=== PATIENT | female | born 1995 | race African-American/Black ===

== ENCOUNTER 2019-07-11 13:40 | Emergency (ER) | payer MEDICAID ==
[~2019-07-11] VITALS: Ht 177.8 cm; Wt 76.2 kg
[2019-07-11 14:18] VITALS: BP 131/96
[2019-07-11 15:31] LABS: BUN/Creatinine Ratio 11.1; Calcium 9.3 mg/dL (8.5-10.1); Potassium 3.5 mmol/L (3.5-5.1)
[2019-07-11 15:34] LABS: Bilirubin, Total 0.3 mg/dL (0.2-1.0); Total Protein 7.7 g/dL (6.4-8.2)
[2019-07-11 15:42] LABS: Basophils # (auto) 0 uL; Basophils % (auto) 0.6 % (0.0-2.0); Eosinophils # (auto) 0.1 uL; Hematocrit 38.1 % (36.0-46.0); Hemoglobin 12.8 g/dL (12.2-16.2); Lymphocytes # (auto) 1.7 uL; Lymphocytes % (auto) 23.2 % (10.0-50.0); Mean Corpuscular Hemoglobin 28.1 pg (28.0-32.0); Mean Corpuscular Hgb Conc. 33.5 g/dL (32.0-36.0); Mean Corpuscular Volume 83.8 fL (80.0-100.0); Monocytes # (auto) 0.3 uL; Monocytes % (auto) 3.7 % (0.0-12.0); Neutrophils % (auto) 70.5 % (37.0-80.0); Nucleated Red Blood Cells % 0.1 %; Platelet Count (auto) 150 10^3/uL (140-450); Red Blood Cells 4.55 10^6/uL (4.0-5.20); Red Cell Distribution Width 16.3 % (11.8-14.3); White Blood Cell 7.1 10^3/uL (4.4-10.8)
[2019-07-11 16:01] LABS: Urine Bacteria FEW /hpf (None Seen); Urine Blood TRACE /uL (Negative); Urine Specific Gravity 1.018 (1.001-1.035); Urine WBC 28 /hpf (0 - 5); Urine WBC Clumps PRESENT /hpf (None Seen)
== END 2019-07-11 16:32 | disposition left against medical advice (07) ==
LOC: ER 13:40
DX: N39.0 Urinary tract infection, site not specified (principal); K31.84 Gastroparesis; E11.43 Type 2 diabetes mellitus with diabetic autonomic (poly)neuropathy; I10 Essential (primary) hypertension; F12.10 Cannabis abuse, uncomplicated; Z90.49 Acquired absence of other specified parts of digestive tract; Z90.89 Acquired absence of other organs; Z88.8 Allergy status to other drugs, medicaments and biological substances; Z53.29 Procedure and treatment not carried out because of patient's decision for other reasons
CPT/HCPCS: 36415; 80053; 81001; 81025; 85025

== ENCOUNTER 2019-07-17 12:41 | Emergency (ER) | payer MEDICAID ==
[~2019-07-17] VITALS: Ht 177.8 cm; Wt 88.0 kg
[2019-07-17 13:17] LABS: Basophils # (auto) 0.1 uL; Basophils % (auto) 1.2 % (0.0-2.0); Eosinophils # (auto) 0.1 uL; Eosinophils % (auto) 1.7 % (0.0-7.0); Hematocrit 36.4 % (36.0-46.0); Hemoglobin 12.3 g/dL (12.2-16.2); Mean Corpuscular Hemoglobin 27.6 pg (28.0-32.0); Mean Corpuscular Hgb Conc. 33.9 g/dL (32.0-36.0); Mean Corpuscular Volume 81.5 fL (80.0-100.0); Monocytes # (auto) 0.3 uL; Monocytes % (auto) 3.6 % (0.0-12.0); Neutrophils # (auto) 4.7 uL; Neutrophils % (auto) 65.5 % (37.0-80.0); Nucleated Red Blood Cells % 0.1 %; Platelet Count (auto) 165 10^3/uL (140-450); Red Blood Cells 4.47 10^6/uL (4.0-5.20); White Blood Cell 7.2 10^3/uL (4.4-10.8)
[2019-07-17 13:40] LABS: Albumin 3.8 g/dL (3.4-5.0); BUN/Creatinine Ratio 7.3; Calcium 9.1 mg/dL (8.5-10.1); Potassium 3.5 mmol/L (3.5-5.1)
[2019-07-17 13:42] LABS: Bilirubin, Total 0.5 mg/dL (0.2-1.0); Total Protein 7.3 g/dL (6.4-8.2)
[2019-07-17 14:11] LABS: Urine Bacteria NONE SEEN /hpf (None Seen); Urine Blood Negative /uL (Negative); Urine Mucus FEW (None Seen); Urine Specific Gravity 1.018 (1.001-1.035); Urine WBC 1 /hpf (0 - 5)
[2019-07-17] MEDS ORDERED: SODIUM CHLORIDE 0.9% 1,000 ML IVB ONE (14:16)
[2019-07-17] MEDS ORDERED: ONDANSETRON HCL 4 MG/2 ML VIAL IV ONE (14:30)
[2019-07-17] MEDS ORDERED: HYDROmorphone HCL 2 MG/ML VL IV ONE (14:30)
[2019-07-17 14:38] LABS: Amylase 92 U/L (25-115); Lipase 73 U/L (73-393)
[2019-07-17 16:31] VITALS: BP 132/79
== END 2019-07-17 16:43 | disposition home or self-care (01) ==
LOC: ER 12:41
DX: R10.31 Right lower quadrant pain (principal); E11.9 Type 2 diabetes mellitus without complications; I10 Essential (primary) hypertension; Z90.49 Acquired absence of other specified parts of digestive tract; Z88.8 Allergy status to other drugs, medicaments and biological substances
CPT/HCPCS: 36415; 74176; 80053; 81001; 81025; 82150; 83690; 85025; 96374; 96375; 99284; J1170; J2405; J7030; 96361

== ENCOUNTER 2019-07-19 10:17 | Emergency (ER) | payer MEDICAID ==
[~2019-07-19] VITALS: Ht 177.8 cm; Wt 81.6 kg
[2019-07-19 10:27] VITALS: BP 147/114
[2019-07-19 12:23] LABS: Basophils # (auto) 0.1 uL; Basophils % (auto) 2.4 % (0.0-2.0); Eosinophils # (auto) 0.1 uL; Hemoglobin 12.7 g/dL (12.2-16.2); Lymphocytes # (auto) 1.5 uL; Mean Corpuscular Hemoglobin 27.8 pg (28.0-32.0); Mean Corpuscular Hgb Conc. 33.4 g/dL (32.0-36.0); Mean Corpuscular Volume 83.4 fL (80.0-100.0); Monocytes # (auto) 0.3 uL; Monocytes % (auto) 5.4 % (0.0-12.0); Neutrophils # (auto) 4.2 uL; Neutrophils % (auto) 67.2 % (37.0-80.0); Platelet Count (auto) 157 10^3/uL (140-450); Red Blood Cells 4.55 10^6/uL (4.0-5.20); Red Cell Distribution Width 16.2 % (11.8-14.3); White Blood Cell 6.2 10^3/uL (4.4-10.8)
[2019-07-19 12:40] LABS: Potassium 3.3 mmol/L (3.5-5.1)
[2019-07-19 12:50] LABS: Albumin 3.8 g/dL (3.4-5.0); BUN/Creatinine Ratio 3.5; Bilirubin, Total 0.7 mg/dL (0.2-1.0); Calcium 9.3 mg/dL (8.5-10.1); Total Protein 7.4 g/dL (6.4-8.2)
[2019-07-19 12:51] LABS: Urine Bacteria NONE SEEN /hpf (None Seen); Urine Blood Negative /uL (Negative); Urine Mucus FEW (None Seen); Urine Specific Gravity 1.018 (1.001-1.035); Urine WBC 5 /hpf (0 - 5)
[2019-07-19] MEDS ORDERED: SODIUM CHLORIDE 0.9% 1,000 ML IV ONE (13:34)
[2019-07-19] MEDS ORDERED: cefTRIAXone 1GM/50ML D5W 50 ML IV ONE (13:45)
== END 2019-07-19 15:53 | disposition left against medical advice (07) ==
LOC: ER 10:17
DX: R10.13 Epigastric pain (principal); N39.0 Urinary tract infection, site not specified; E86.0 Dehydration; E87.6 Hypokalemia; Z88.8 Allergy status to other drugs, medicaments and biological substances; Z90.49 Acquired absence of other specified parts of digestive tract; Z53.29 Procedure and treatment not carried out because of patient's decision for other reasons
CPT/HCPCS: 36415; 80053; 81001; 81025; 82962; 83690; 85025

== ENCOUNTER 2019-07-20 16:18 | Emergency (ER) | payer MEDICAID ==
[~2019-07-20] VITALS: Ht 177.8 cm; Wt 86.2 kg
[2019-07-20 16:32] VITALS: BP 130/96
[2019-07-20 17:05] LABS: Basophils # (auto) 0.1 uL; Basophils % (auto) 1.3 % (0.0-2.0); Eosinophils # (auto) 0 uL; Eosinophils % (auto) 0.7 % (0.0-7.0); Hematocrit 37.1 % (36.0-46.0); Hemoglobin 12.8 g/dL (12.2-16.2); Lymphocytes # (auto) 1.8 uL; Lymphocytes % (auto) 26.5 % (10.0-50.0); Mean Corpuscular Hgb Conc. 34.6 g/dL (32.0-36.0); Mean Corpuscular Volume 81.1 fL (80.0-100.0); Monocytes # (auto) 0.3 uL; Monocytes % (auto) 4.6 % (0.0-12.0); Neutrophils # (auto) 4.6 uL; Neutrophils % (auto) 66.9 % (37.0-80.0); Platelet Count (auto) 164 10^3/uL (140-450); Red Blood Cells 4.57 10^6/uL (4.0-5.20); Red Cell Distribution Width 16.2 % (11.8-14.3); White Blood Cell 6.9 10^3/uL (4.4-10.8)
[2019-07-20 17:24] LABS: BUN/Creatinine Ratio 6.5; Calcium 9.2 mg/dL (8.5-10.1); Potassium 3.4 mmol/L (3.5-5.1)
[2019-07-20 17:27] LABS: Bilirubin, Total 0.6 mg/dL (0.2-1.0); Total Protein 7.6 g/dL (6.4-8.2)
== END 2019-07-20 21:38 | disposition left against medical advice (07) ==
LOC: ER 16:18
DX: R10.9 Unspecified abdominal pain (principal); Z53.21 Procedure and treatment not carried out due to patient leaving prior to being seen by health care provider
CPT/HCPCS: 36415; 80053; 84702; 85025

== ENCOUNTER 2019-07-25 09:05 | Inpatient (IN) | payer MEDICAID ==
[~2019-07-25] VITALS: Ht 162.6 cm; Wt 86.0 kg
[2019-07-25 09:45] LABS: Basophils # (auto) 0.1 uL; Basophils % (auto) 1.1 % (0.0-2.0); Eosinophils # (auto) 0.1 uL; Eosinophils % (auto) 1.9 % (0.0-7.0); Hematocrit 38.4 % (36.0-46.0); Lymphocytes # (auto) 2.2 uL; Lymphocytes % (auto) 29.2 % (10.0-50.0); Mean Corpuscular Hgb Conc. 33.9 g/dL (32.0-36.0); Mean Corpuscular Volume 82.6 fL (80.0-100.0); Monocytes # (auto) 0.3 uL; Monocytes % (auto) 4.3 % (0.0-12.0); Neutrophils # (auto) 4.8 uL; Neutrophils % (auto) 63.5 % (37.0-80.0); Platelet Count (auto) 141 10^3/uL (140-450); Red Blood Cells 4.65 10^6/uL (4.0-5.20); Red Cell Distribution Width 16.5 % (11.8-14.3); White Blood Cell 7.6 10^3/uL (4.4-10.8)
[2019-07-25] MEDS ORDERED: SODIUM CHLORIDE 0.9% 1,000 ML IV ONE ×2 (09:59)
[2019-07-25] MEDS ORDERED: PROMETHAZINE HCL 25 MG/ML 1ML IV ONE (10:00)
[2019-07-25] MEDS ORDERED: MORPHINE SULFATE 4 MG/ML SYR/VIAL IV ONE (10:00)
[2019-07-25 10:03] LABS: Albumin 3.9 g/dL (3.4-5.0); BUN/Creatinine Ratio 7.3; Calcium 9.2 mg/dL (8.5-10.1); Potassium 3.4 mmol/L (3.5-5.1)
[2019-07-25 10:05] LABS: Bilirubin, Total 0.7 mg/dL (0.2-1.0); Total Protein 7.4 g/dL (6.4-8.2)
[2019-07-25] MEDS ORDERED: cloNIDine HCL 0.1 MG TAB ONE (11:14)
[2019-07-25] MEDS ORDERED: cloNIDine HCL 0.1 MG TAB PO ONE (11:30)
[2019-07-25] MEDS ORDERED: PROCHLORPERAZINE EDISYLATE 5 MG/ML 2ML VIAL IV ONE (13:00)
[2019-07-25] MEDS ORDERED: KETOROLAC TROMETH 30 MG/ML 1ML VIAL IV ONE (13:00)
[2019-07-25] MEDS ORDERED: LABETALOL HCL 5 MG/ML ML 20ML VIAL IV PRN (15:30)
[2019-07-25] MEDS ORDERED: SOD CHL 0.9%/ KCL 20MEQ 1,000 ML IV ONE (15:30)
[2019-07-25] MEDS ORDERED: cefTRIAXone 1GM/50ML D5W 50 ML IV ONE (15:30)
[2019-07-25 17:54] VITALS: BP 164/111
[2019-07-25 20:00] VITALS: BP 136/70
[2019-07-25] MEDS: MORPHINE SULFATE 4 MG/ML SYR/VIAL IV PRN (20:20)
[2019-07-25 22:00] VITALS: BP 136/70
[2019-07-25] MEDS: PANTOPRAZOLE 40 MG TAB PO SCH (22:41)
[2019-07-25] MEDS: METOCLOPRAMIDE HCL 5MG/ml INJ 2ml VIAL IV SCH (22:42)
[2019-07-25] MEDS: BENAZEPRIL HCL 10 MG TAB PO SCH (22:42)
[2019-07-26 05:00] VITALS: BP 153/99
[2019-07-26] MEDS: MORPHINE SULFATE 4 MG/ML SYR/VIAL IV PRN ×2 (05:37→12:11)
[2019-07-26] MEDS: METOCLOPRAMIDE HCL 5MG/ml INJ 2ml VIAL IV SCH ×2 (06:31→13:55)
[2019-07-26 06:48] LABS: Urine Bacteria NONE SEEN /hpf (None Seen); Urine Blood Negative /uL (Negative); Urine Mucus FEW (None Seen); Urine Pregnacy Test Negative (Negative); Urine Specific Gravity 1.022 (1.001-1.035); Urine WBC <1 /hpf (0 - 5)
[2019-07-26] MEDS ORDERED: HYDROcodone-ACET 10/325MG TAB PO ONE (07:00)
[2019-07-26 07:01] LABS: Alcohol, Urine < 3.0 mg/dL (0-5); Amphetamine Screen, Urine NEGATIVE (NEGATIVE); Barbiturate Scree,Urine NEGATIVE (NEGATIVE); Benzodiazephine Screen, Urine NEGATIVE (NEGATIVE); Cannabinoid Screen, Urine POSITIVE (NEGATIVE); Cocaine Screen, Urine NEGATIVE (NEGATIVE); Opiate Scree,Urine POSITIVE (NEGATIVE); Phencyclidine Screen, Urine NEGATIVE (NEGATIVE)
[2019-07-26 08:19] LABS: BUN/Creatinine Ratio 11.3; Calcium 8.9 mg/dL (8.5-10.1); Potassium 3.3 mmol/L (3.5-5.1)
[2019-07-26 09:00] VITALS: BP 144/89
[2019-07-26] MEDS ORDERED: amLODIPine BESYLATE 5 MG TAB PO SCH (10:00)
[2019-07-26] MEDS: BENAZEPRIL HCL 10 MG TAB PO SCH (10:35)
[2019-07-26] MEDS: PANTOPRAZOLE 40 MG TAB PO SCH (10:36)
[2019-07-26] MEDS ORDERED: POTASSIUM CHL 20 Meq TABLET PO ONE (11:15)
[2019-07-26 12:30] VITALS: BP 142/97
[2019-07-26 13:11] VITALS: BP 144/89
== END 2019-07-26 15:42 | disposition home or self-care (01) | DRG 199 ==
LOC: ER 09:08 → OVERFLOW 09:09 → WEST WING 17:16
PROVIDERS: ADMIT Nurse Practitioner Acute Care; ATTEND Internal Medicine
DX: I16.9 Hypertensive crisis, unspecified (principal); E87.6 Hypokalemia; K21.9 Gastro-esophageal reflux disease without esophagitis; I10 Essential (primary) hypertension; Z90.49 Acquired absence of other specified parts of digestive tract
CPT/HCPCS: 36415; 80048; 80053; 80307; 81001; 81025; 83690; 85025; 96361; 96365; 96375; G0378; J0696; J1885

== ENCOUNTER 2019-07-27 07:59 | Emergency (ER) | payer MEDICAID ==
[~2019-07-27] VITALS: Ht 175.3 cm; Wt 86.2 kg
[2019-07-27 08:15] VITALS: BP 171/114
[2019-07-27] MEDS ORDERED: HYDROcodone-ACET 10/325MG TAB PO ONE (08:45)
[2019-07-27] MEDS ORDERED: ONDANSETRON ODT 4 MG TAB PO ONE (08:45)
== END 2019-07-27 09:13 | disposition home or self-care (01) ==
LOC: ER 07:59
DX: K21.9 Gastro-esophageal reflux disease without esophagitis (principal); Z90.49 Acquired absence of other specified parts of digestive tract; Z90.89 Acquired absence of other organs; Z88.8 Allergy status to other drugs, medicaments and biological substances
CPT/HCPCS: 99283; Q0162

== ENCOUNTER 2019-07-28 09:45 | Emergency (ER) | payer MEDICAID ==
[~2019-07-28] VITALS: Ht 180.3 cm; Wt 86.2 kg
[2019-07-28 10:00] VITALS: BP 175/137
== END 2019-07-28 11:25 | disposition left against medical advice (07) ==
LOC: ER 09:45
DX: R10.9 Unspecified abdominal pain (principal); Z53.21 Procedure and treatment not carried out due to patient leaving prior to being seen by health care provider

== ENCOUNTER 2019-07-28 15:17 | Emergency (ER) | payer MEDICAID ==
[~2019-07-28] VITALS: Ht 177.8 cm; Wt 84.8 kg
[2019-07-28 15:44] VITALS: BP 146/100
== END 2019-07-28 20:07 | disposition left against medical advice (07) ==
LOC: ER 15:17
DX: R10.9 Unspecified abdominal pain (principal); Z53.21 Procedure and treatment not carried out due to patient leaving prior to being seen by health care provider

== ENCOUNTER 2019-10-11 19:21 | Emergency (ER) | payer MEDICAID ==
[~2019-10-11] VITALS: Ht 172.7 cm; Wt 77.1 kg
[2019-10-11 19:38] VITALS: BP 171/97
[2019-10-11 20:02] LABS: Basophils # (auto) 0.1 uL; Basophils % (auto) 0.9 % (0.0-2.0); Eosinophils # (auto) 0.1 uL; Hematocrit 38.2 % (36.0-46.0); Hemoglobin 12.6 g/dL (12.2-16.2); Lymphocytes % (auto) 18.6 % (10.0-50.0); Mean Corpuscular Hemoglobin 27.5 pg (28.0-32.0); Mean Corpuscular Hgb Conc. 32.8 g/dL (32.0-36.0); Mean Corpuscular Volume 83.7 fL (80.0-100.0); Monocytes # (auto) 0.4 uL; Monocytes % (auto) 3.5 % (0.0-12.0); Neutrophils # (auto) 8.2 uL; Platelet Count (auto) 173 10^3/uL (140-450); Red Blood Cells 4.57 10^6/uL (4.0-5.20); Red Cell Distribution Width 15.6 % (11.8-14.3); White Blood Cell 10.8 10^3/uL (4.4-10.8)
[2019-10-11 20:23] LABS: Calcium 9.3 mg/dL (8.5-10.1); Potassium 3.8 mmol/L (3.5-5.1)
[2019-10-11 20:27] LABS: BUN/Creatinine Ratio 20.3; Bilirubin, Total 0.3 mg/dL (0.2-1.0); Total Protein 8.2 g/dL (6.4-8.2)
== END 2019-10-11 22:15 | disposition left against medical advice (07) ==
LOC: ER 19:21
DX: R10.84 Generalized abdominal pain (principal); Z53.21 Procedure and treatment not carried out due to patient leaving prior to being seen by health care provider
CPT/HCPCS: 36415; 80053; 82150; 83690; 84702; 85025

== ENCOUNTER 2019-10-29 11:57 | Emergency (ER) | payer MEDICAID ==
[~2019-10-29] VITALS: Ht 177.8 cm; Wt 90.7 kg
[2019-10-29] MEDS ORDERED: SODIUM CHLORIDE 0.9% 1,000 ML IV ONE (12:27)
[2019-10-29] MEDS ORDERED: KETOROLAC TROMETH 30 MG/ML 1ML VIAL IV ONE (12:30)
[2019-10-29] MEDS ORDERED: PROMETHAZINE HCL 25 MG/ML 1ML IV PRN (12:30)
[2019-10-29 13:32] LABS: Basophils # (auto) 0.1 uL; Basophils % (auto) 1.4 % (0.0-2.0); Eosinophils # (auto) 0.2 uL; Hematocrit 40.3 % (36.0-46.0); Hemoglobin 13.4 g/dL (12.2-16.2); Lymphocytes # (auto) 1.7 uL; Lymphocytes % (auto) 20.4 % (10.0-50.0); Mean Corpuscular Hemoglobin 27.6 pg (28.0-32.0); Mean Corpuscular Hgb Conc. 33.4 g/dL (32.0-36.0); Mean Corpuscular Volume 82.9 fL (80.0-100.0); Monocytes # (auto) 0.3 uL; Monocytes % (auto) 3.2 % (0.0-12.0); Neutrophils # (auto) 6.1 uL; Nucleated Red Blood Cells % 0.1 %; Platelet Count (auto) 211 10^3/uL (140-450); Red Blood Cells 4.87 10^6/uL (4.0-5.20); Red Cell Distribution Width 16.7 % (11.8-14.3); White Blood Cell 8.3 10^3/uL (4.4-10.8)
[2019-10-29 13:52] LABS: Calcium 9.7 mg/dL (8.5-10.1)
[2019-10-29 13:54] LABS: Magnesium 2.1 mg/dL (1.6-2.6)
[2019-10-29 13:57] LABS: Albumin 3.8 g/dL (3.4-5.0); BUN/Creatinine Ratio 13.9; Bilirubin, Total 0.4 mg/dL (0.2-1.0); Total Protein 8.3 g/dL (6.4-8.2)
[2019-10-29 15:35] VITALS: BP 152/89
== END 2019-10-29 15:35 | disposition home or self-care (01) ==
LOC: ER 11:57
DX: K59.8 Other specified functional intestinal disorders (principal); M54.6 Pain in thoracic spine; E11.9 Type 2 diabetes mellitus without complications; I10 Essential (primary) hypertension; Z90.49 Acquired absence of other specified parts of digestive tract; Z90.89 Acquired absence of other organs; Z88.8 Allergy status to other drugs, medicaments and biological substances
CPT/HCPCS: 36415; 71046; 74176; 80053; 82962; 83690; 83735; 84702; 85025; 96361; 96374; 99284; J2550; J7030

== ENCOUNTER 2019-10-30 10:08 | Emergency (ER) | payer MEDICAID ==
[~2019-10-30] VITALS: Ht 170.2 cm; Wt 95.3 kg
[2019-10-30] MEDS ORDERED: SODIUM CHLORIDE 0.9% 1,000 ML IV ONE ×2 (10:23)
[2019-10-30] MEDS ORDERED: PROCHLORPERAZINE EDISYLATE 5 MG/ML 2ML VIAL IV ONE (10:30)
[2019-10-30] MEDS ORDERED: ONDANSETRON HCL 4 MG/2 ML VIAL IV ONE (10:30)
[2019-10-30] MEDS ORDERED: NALBUPHINE HCL 10 MG/1ml INJECTION IV ONE (10:30)
[2019-10-30 10:33] VITALS: BP 176/119
[2019-10-30] MEDS ORDERED: MORPHINE SULF INJ 2 MG/ML SYRINGE 1ML IV ONE (11:15)
== END 2019-10-30 12:53 | disposition left against medical advice (07) ==
LOC: EDBD 10:08 → ER 10:11
DX: E86.0 Dehydration (principal); F12.988 Cannabis use, unspecified with other cannabis-induced disorder; E11.9 Type 2 diabetes mellitus without complications; I10 Essential (primary) hypertension; Z88.8 Allergy status to other drugs, medicaments and biological substances
CPT/HCPCS: 74018; 96361; 96374; 96375; 99283; J0780; J2270; J7030

== ENCOUNTER 2019-10-31 13:59 | Emergency (ER) | payer MEDICAID ==
[~2019-10-31] VITALS: Ht 175.3 cm; Wt 86.2 kg
[2019-10-31 14:20] VITALS: BP 151/99
== END 2019-10-31 19:40 | disposition left against medical advice (07) ==
LOC: EDBD 13:59 → ER 13:59
DX: R10.9 Unspecified abdominal pain (principal); R11.2 Nausea with vomiting, unspecified; Z53.21 Procedure and treatment not carried out due to patient leaving prior to being seen by health care provider

== ENCOUNTER 2019-11-01 11:07 | Emergency (ER) | payer MEDICAID ==
[~2019-11-01] VITALS: Ht 177.8 cm; Wt 90.7 kg
[2019-11-01] MEDS ORDERED: SODIUM CHLORIDE 0.9% 1,000 ML IVB ONE (11:51)
[2019-11-01] MEDS ORDERED: MORPHINE SULFATE 4 MG/ML SYR/VIAL IV ONE (12:00)
[2019-11-01] MEDS ORDERED: PROMETHAZINE HCL 25 MG/ML 1ML IV PRN (12:00)
[2019-11-01] MEDS ORDERED: LORazepam 2MG/ML-1ML VIAL IV ONE (12:00)
[2019-11-01 14:23] VITALS: BP 134/56
== END 2019-11-01 15:00 | disposition home or self-care (01) ==
LOC: ER 11:07
DX: K29.70 Gastritis, unspecified, without bleeding (principal); E86.0 Dehydration; E11.9 Type 2 diabetes mellitus without complications; I10 Essential (primary) hypertension
CPT/HCPCS: 96361; 96374; 96375; 99283; J2060; J2270; J2550; J7030

== ENCOUNTER 2019-11-16 09:46 | Emergency (ER) | payer MEDICAID ==
[~2019-11-16] VITALS: Ht 175.3 cm; Wt 90.7 kg
[2019-11-16 09:48] VITALS: BP 132/88
[2019-11-16 10:43] LABS: Basophils # (auto) 0.1 uL; Basophils % (auto) 0.9 % (0.0-2.0); Eosinophils # (auto) 0.1 uL; Eosinophils % (auto) 1.6 % (0.0-7.0); Hematocrit 41.5 % (36.0-46.0); Hemoglobin 13.6 g/dL (12.2-16.2); Lymphocytes # (auto) 1.6 uL; Lymphocytes % (auto) 22.3 % (10.0-50.0); Mean Corpuscular Hemoglobin 27.2 pg (28.0-32.0); Mean Corpuscular Hgb Conc. 32.8 g/dL (32.0-36.0); Mean Corpuscular Volume 82.9 fL (80.0-100.0); Monocytes # (auto) 0.3 uL; Monocytes % (auto) 4.4 % (0.0-12.0); Neutrophils % (auto) 70.8 % (37.0-80.0); Platelet Count (auto) 151 10^3/uL (140-450); Red Blood Cells 5.01 10^6/uL (4.0-5.20); Red Cell Distribution Width 16.1 % (11.8-14.3); White Blood Cell 7.1 10^3/uL (4.4-10.8)
[2019-11-16 10:57] LABS: BUN/Creatinine Ratio 15.5; Calcium 9.6 mg/dL (8.5-10.1); Potassium 4.3 mmol/L (3.5-5.1)
== END 2019-11-16 22:48 | disposition left against medical advice (07) ==
LOC: ER 09:46
DX: R11.10 Vomiting, unspecified (principal); Z53.21 Procedure and treatment not carried out due to patient leaving prior to being seen by health care provider
CPT/HCPCS: 36415; 80048; 84702; 85025

== ENCOUNTER 2020-08-20 06:32 | Emergency (ER) | payer MEDICAID ==
[~2020-08-20] VITALS: Ht 172.7 cm; Wt 92.1 kg
[2020-08-20] MEDS ORDERED: cloNIDine HCL 0.1 MG TAB PO ONE (07:00)
[2020-08-20 08:19] LABS: Basophils # (auto) 0.1 10 ^3/uL (0-0.2); Basophils % (auto) 1.4 % (0.0-2.0); Eosinophils # (auto) 0.1 10 ^3/uL (0-0.8); Eosinophils % (auto) 1.2 % (0.0-7.0); Hematocrit 36.3 % (36.0-46.0); Lymphocytes # (auto) 1.4 10 ^3/uL (0.4-5.4); Lymphocytes % (auto) 21.1 % (10.0-50.0); Mean Corpuscular Hemoglobin 27.9 pg (28.0-32.0); Mean Corpuscular Hgb Conc. 33.1 g/dL (32.0-36.0); Mean Corpuscular Volume 84.5 fL (80.0-100.0); Monocytes # (auto) 0.3 10 ^3/uL (0-1.3); Monocytes % (auto) 4.5 % (0.0-12.0); Neutrophils # (auto) 4.9 10 ^3/uL (1.6-8.6); Neutrophils % (auto) 71.8 % (37.0-80.0); Nucleated Red Blood Cells % 0.1 %; Platelet Count (auto) 154 10^3/uL (140-450); Red Blood Cells 4.29 10^6/uL (4.0-5.20); Red Cell Distribution Width 15.7 % (11.8-14.3); White Blood Cell 6.8 10^3/uL (4.4-10.8)
[2020-08-20 08:20] LABS: Calcium 9.2 mg/dL (8.5-10.1); Potassium 3.2 mmol/L (3.5-5.1)
[2020-08-20 08:24] LABS: BUN/Creatinine Ratio 10.5; Bilirubin, Total 1.2 mg/dL (0.2-1.0); Total Protein 7.4 g/dL (6.4-8.2)
[2020-08-20] MEDS ORDERED: MORPHINE SULFATE 4 MG/ML SYR/VIAL IV ONE (08:45)
[2020-08-20] MEDS ORDERED: SODIUM CHLORIDE 0.9% 1,000 ML IV ONE ×2 (08:45)
[2020-08-20] MEDS ORDERED: ONDANSETRON HCL 4 MG/2 ML VIAL IV ONE (08:45)
[2020-08-20] MEDS ORDERED: LABETALOL HCL 5 MG/ML 4ML SYRINGE IV ONE (11:00)
[2020-08-20 11:11] VITALS: BP 127/85
[2020-08-20] MEDS ORDERED: POTASSIUM EFFERVESENT TAB 25 MEQ PO ONE (11:30)
[2020-08-20 12:08] LABS: Urine Bacteria NONE SEEN /hpf (None Seen); Urine Blood 3+ /uL (Negative); Urine Mucus FEW (None Seen); Urine Specific Gravity 1.029 (1.001-1.035); Urine WBC 2 /hpf (0 - 5)
== END 2020-08-20 13:40 | disposition home or self-care (01) ==
LOC: ER 06:32
DX: E87.6 Hypokalemia (principal); E86.0 Dehydration; I10 Essential (primary) hypertension; Z32.02 Encounter for pregnancy test, result negative
CPT/HCPCS: 36415; 80053; 81001; 81025; 82962; 83690; 85025; 96361; 96374; 96375; 99285; J2270; J2405; J7030

== ENCOUNTER 2020-09-23 18:52 | Emergency (ER) | payer MEDICAID ==
[~2020-09-23] VITALS: Ht 180.3 cm; Wt 86.2 kg
[2020-09-23] MEDS ORDERED: ONDANSETRON HCL 4 MG/2 ML VIAL IV ONE (19:15)
[2020-09-23] MEDS ORDERED: fentaNYL CITRATE 100 MCG/2 ML VL IV ONE (19:15)
[2020-09-23] MEDS ORDERED: SODIUM CHLORIDE 0.9% 3,000 ML IV ONE (20:15)
[2020-09-23] MEDS ORDERED: IOHEXOL 300 MG/ML 100ML BOTTLE IJ ONE (20:56)
[2020-09-23 20:57] VITALS: BP 174/113
[2020-09-23 21:41] LABS: Basophils # (auto) 0 10 ^3/uL (0-0.2); Basophils % (auto) 0.4 % (0.0-2.0); Eosinophils # (auto) 0 10 ^3/uL (0-0.8); Eosinophils % (auto) 0.2 % (0.0-7.0); Hematocrit 38.9 % (36.0-46.0); Hemoglobin 12.7 g/dL (12.2-16.2); Lymphocytes # (auto) 0.8 10 ^3/uL (0.4-5.4); Lymphocytes % (auto) 7.6 % (10.0-50.0); Mean Corpuscular Hemoglobin 27.8 pg (28.0-32.0); Mean Corpuscular Hgb Conc. 32.7 g/dL (32.0-36.0); Monocytes # (auto) 0.2 10 ^3/uL (0-1.3); Monocytes % (auto) 1.8 % (0.0-12.0); Neutrophils # (auto) 9.9 10 ^3/uL (1.6-8.6); Platelet Count (auto) 187 10^3/uL (140-450); Red Blood Cells 4.57 10^6/uL (4.0-5.20); Red Cell Distribution Width 16.6 % (11.8-14.3)
[2020-09-23 21:56] LABS: Albumin 3.9 g/dL (3.4-5.0); Calcium 9.6 mg/dL (8.5-10.1); Potassium 3.4 mmol/L (3.5-5.1)
[2020-09-23 21:59] LABS: BUN/Creatinine Ratio 13.1; Bilirubin, Total 0.6 mg/dL (0.2-1.0); Total Protein 7.9 g/dL (6.4-8.2)
[2020-09-23 22:00] LABS: Lactic Acid w/Reflex 2.9 mmol/L (0.4-2.0)
[2020-09-23 22:43] LABS: INR 0.99 (0.9-1.15); Partial Thromboplastin Time 22.3 sec (23.0-31.2)
[2020-09-24] MEDS ORDERED: ONDANSETRON ODT 4 MG TAB PO ONE ×4 (00:04→03:30)
[2020-09-24] MEDS ORDERED: HYDROcodone-ACET 10/325MG TAB ONE (01:54)
[2020-09-24] MEDS ORDERED: HYDROcodone-ACET 10/325MG TAB PO ONE (03:30)
[2020-09-24] MEDS ORDERED: AMMONIA 0.33 ML INHALANT IN ONE (03:30)
== END 2020-09-24 02:24 | disposition home or self-care (01) ==
LOC: EDBD 18:52 → ER 18:59
DX: K29.70 Gastritis, unspecified, without bleeding (principal); E86.0 Dehydration; R11.2 Nausea with vomiting, unspecified; E11.9 Type 2 diabetes mellitus without complications; I10 Essential (primary) hypertension; Z90.49 Acquired absence of other specified parts of digestive tract
CPT/HCPCS: 36415; 80053; 82150; 83605; 83690; 84702; 85025; 85610; 85730; 99283; Q0162

== ENCOUNTER 2020-12-04 07:36 | Emergency (ER) | payer MEDICAID ==
[~2020-12-04] VITALS: Ht 165.1 cm; Wt 74.4 kg
[2020-12-04] MEDS ORDERED: LORazepam 2MG/ML-1ML VIAL ONE (08:11)
[2020-12-04] MEDS ORDERED: SODIUM CHLORIDE 0.9% 1,000 ML IV ONE (08:15)
[2020-12-04] MEDS ORDERED: PROMETHAZINE HCL 25 MG/ML 1ML ONE (08:26)
[2020-12-04] MEDS ORDERED: PROMETHAZINE HCL 25 MG/ML 1ML IV ONE (08:30)
[2020-12-04 09:33] LABS: Basophils # (auto) 0 10 ^3/uL (0-0.2); Basophils % (auto) 0.6 % (0.0-2.0); Eosinophils # (auto) 0.1 10 ^3/uL (0-0.8); Eosinophils % (auto) 0.8 % (0.0-7.0); Hematocrit 38.8 % (36.0-46.0); Hemoglobin 12.9 g/dL (12.2-16.2); Lymphocytes # (auto) 1.2 10 ^3/uL (0.4-5.4); Lymphocytes % (auto) 18.5 % (10.0-50.0); Mean Corpuscular Hemoglobin 27.8 pg (28.0-32.0); Mean Corpuscular Hgb Conc. 33.3 g/dL (32.0-36.0); Mean Corpuscular Volume 83.5 fL (80.0-100.0); Monocytes # (auto) 0.3 10 ^3/uL (0-1.3); Monocytes % (auto) 4.9 % (0.0-12.0); Neutrophils % (auto) 75.2 % (37.0-80.0); Platelet Count (auto) 124 10^3/uL (140-450); Red Blood Cells 4.65 10^6/uL (4.0-5.20); Red Cell Distribution Width 16.2 % (11.8-14.3); White Blood Cell 6.7 10^3/uL (4.4-10.8)
[2020-12-04 09:51] LABS: Albumin 3.7 g/dL (3.4-5.0); BUN/Creatinine Ratio 11.4; Calcium 9.6 mg/dL (8.5-10.1); Potassium 3.4 mmol/L (3.5-5.1)
[2020-12-04 09:54] LABS: Bilirubin, Total 0.7 mg/dL (0.2-1.0); Total Protein 7.3 g/dL (6.4-8.2)
[2020-12-04] MEDS ORDERED: MORPHINE SULFATE 4 MG/ML SYR/VIAL IV ONE (10:15)
[2020-12-04 10:22] LABS: Urine Bacteria NONE SEEN /hpf (None Seen); Urine Blood Negative /uL (Negative); Urine Mucus FEW (None Seen); Urine Specific Gravity 1.023 (1.001-1.035); Urine WBC 1 /hpf (0 - 5)
[2020-12-04 10:33] LABS: Amphetamine Screen, Urine NEGATIVE (NEGATIVE); Barbiturate Scree,Urine NEGATIVE (NEGATIVE); Benzodiazephine Screen, Urine NEGATIVE (NEGATIVE); Cannabinoid Screen, Urine POSITIVE (NEGATIVE); Cocaine Screen, Urine NEGATIVE (NEGATIVE); Opiate Scree,Urine NEGATIVE (NEGATIVE); Phencyclidine Screen, Urine NEGATIVE (NEGATIVE)
[2020-12-04] MEDS ORDERED: PROCHLORPERAZINE EDISYLATE 5 MG/ML 2ML VIAL IV ONE (11:00)
[2020-12-04 11:33] VITALS: BP 113/64
== END 2020-12-04 12:02 | disposition home or self-care (01) ==
LOC: ER 07:36
DX: R10.9 Unspecified abdominal pain (principal); F12.10 Cannabis abuse, uncomplicated; E86.0 Dehydration; E11.9 Type 2 diabetes mellitus without complications; I10 Essential (primary) hypertension; Z90.49 Acquired absence of other specified parts of digestive tract; Z88.8 Allergy status to other drugs, medicaments and biological substances
CPT/HCPCS: 36415; 80053; 80307; 81001; 83690; 85025; 96361; 96374; 96375; 99284; J0780; J2270; J2550; J7030

== ENCOUNTER 2021-12-08 05:35 | Observation (INO) | payer MEDICAID ==
[~2021-12-08] VITALS: Ht 175.3 cm; Wt 90.7 kg
[2021-12-08] MEDS ORDERED: LORazepam 2MG/ML-1ML VIAL ONE (05:59)
[2021-12-08] MEDS ORDERED: MAGNESIUM SULFATE 100 ML IV ONE ×2 (06:00→06:45)
[2021-12-08] MEDS ORDERED: MAGNESIUM SULFATE 40MG/ML 1,000 ML IV ONE (06:01)
[2021-12-08] MEDS ORDERED: levETIRAcetam 500 MG/5ML INJ IV ONE ×2 (06:04→06:30)
[2021-12-08] MEDS ORDERED: MAGNESIUM SULFATE 40MG/ML 1,000 ML IV SCH (06:45)
[2021-12-08] MEDS ORDERED: LORazepam 2MG/ML-1ML VIAL IV ONE ×2 (07:00→07:30)
[2021-12-08 07:09] LABS: Basophils # (auto) 0 10 ^3/uL (0-0.2); Basophils % (auto) 0.4 % (0.0-2.0); Eosinophils # (auto) 0.1 10 ^3/uL (0-0.8); Eosinophils % (auto) 1.5 % (0.0-7.0); Hematocrit 28.1 % (36.0-46.0); Lymphocytes # (auto) 1.1 10 ^3/uL (0.4-5.4); Lymphocytes % (auto) 12.2 % (10.0-50.0); Mean Corpuscular Hemoglobin 31.3 pg (28.0-32.0); Mean Corpuscular Hgb Conc. 35.6 g/dL (32.0-36.0); Mean Corpuscular Volume 87.7 fL (80.0-100.0); Monocytes # (auto) 0.3 10 ^3/uL (0-1.3); Monocytes % (auto) 3.4 % (0.0-12.0); Neutrophils # (auto) 7.5 10 ^3/uL (1.6-8.6); Neutrophils % (auto) 82.5 % (37.0-80.0); Nucleated Red Blood Cells % 0.2 %; Red Blood Cells 3.21 10^6/uL (4.0-5.20); Red Cell Distribution Width 15.2 % (11.8-14.3); White Blood Cell 9.1 10^3/uL (4.4-10.8)
[2021-12-08 07:34] LABS: Albumin 2.9 g/dL (3.4-5.0); Calcium 8.9 mg/dL (8.5-10.1); Potassium 3.2 mmol/L (3.5-5.1); Uric Acid 3.5 mg/dL (2.6-6.0)
[2021-12-08 07:37] LABS: BUN/Creatinine Ratio 6.8; Bilirubin, Total 0.2 mg/dL (0.2-1.0); Total Protein 6.4 g/dL (6.4-8.2)
[2021-12-08 07:45] LABS: INR 0.99 (0.9-1.15); Partial Thromboplastin Time 29.5 sec (23.6-33.0)
[2021-12-08 07:47] LABS: Protein, Urine 13.9 mg/dL (0.0-11.9)
[2021-12-08 08:19] LABS: Alcohol, Urine < 3.0 mg/dL (0-10); Amphetamine Screen, Urine NEGATIVE (NEGATIVE); Barbiturate Scree,Urine NEGATIVE (NEGATIVE); Benzodiazephine Screen, Urine NEGATIVE (NEGATIVE); Cannabinoid Screen, Urine POSITIVE (NEGATIVE); Cocaine Screen, Urine NEGATIVE (NEGATIVE); Opiate Scree,Urine NEGATIVE (NEGATIVE); Phencyclidine Screen, Urine NEGATIVE (NEGATIVE)
[2021-12-08 08:37] LABS: Urine Bacteria FEW /hpf (None Seen); Urine Blood Negative /uL (Negative); Urine Specific Gravity 1.012 (1.001-1.035); Urine WBC 36 /hpf (0 - 5)
[2021-12-08 22:38] VITALS: BP_DIAS 134
== END 2021-12-08 09:30 | disposition home or self-care (01) ==
LOC: LDRP 05:35
PROVIDERS: ADMIT Obstetrics & Gynecology; ATTEND Obstetrics & Gynecology
DX: O99.353 Diseases of the nervous system complicating pregnancy, third trimester (principal); G40.802 Other epilepsy, not intractable, without status epilepticus; O13.3 Gestational [pregnancy-induced] hypertension without significant proteinuria, third trimester; G40.909 Epilepsy, unspecified, not intractable, without status epilepticus; O24.419 Gestational diabetes mellitus in pregnancy, unspecified control; Z79.4 Long term (current) use of insulin; Z79.899 Other long term (current) drug therapy; Z3A.29 29 weeks gestation of pregnancy
CPT/HCPCS: 36415; 59025; 76805; 76817; 80053; 80307; 81001; 81002; 82570; 82962; 83735; 84156; 84550; 85025; 85384; 85610; 85730; 86850; 86900; 86901; 87210; 94760; 96365; 96366; 96368; 96375; 96376; G0378; J1953; J2060; J3475; J7030; J7060; 96360; 96361; 96374

== ENCOUNTER 2021-12-11 08:00 | Observation (INO) | payer MEDICAID ==
[~2021-12-11] VITALS: Ht 172.7 cm; Wt 90.7 kg
[2021-12-11] MEDS ORDERED: LACTATED RINGER'S 1,000 ML IV SCH ×2 (08:15→10:00)
[2021-12-11] MEDS ORDERED: LORazepam 2MG/ML-1ML VIAL IV ONE (08:15)
[2021-12-11] MEDS ORDERED: LACTATED RINGER'S 1,000 ML IV ONE (09:00)
[2021-12-11] MEDS ORDERED: MAGNESIUM SULFATE 100 ML IV ONE (10:00)
[2021-12-11] MEDS ORDERED: MAGNESIUM SULFATE 40MG/ML 1,000 ML IV SCH (10:00)
== END 2021-12-11 09:58 | disposition home or self-care (01) ==
LOC: LDRP 08:00
PROVIDERS: ADMIT Obstetrics & Gynecology; ATTEND Obstetrics & Gynecology
DX: O99.353 Diseases of the nervous system complicating pregnancy, third trimester (principal); R56.9 Unspecified convulsions; O62.9 Abnormality of forces of labor, unspecified; O26.893 Other specified pregnancy related conditions, third trimester; N89.8 Other specified noninflammatory disorders of vagina; R10.30 Lower abdominal pain, unspecified; O13.3 Gestational [pregnancy-induced] hypertension without significant proteinuria, third trimester; Z3A.29 29 weeks gestation of pregnancy
CPT/HCPCS: 36415; 59025; 81002; 83735; 94760; 96361; 96365; 96375; G0378; J1953; J2060; J7060; 96374

== ENCOUNTER 2021-12-11 10:17 | Emergency (ER) | payer MEDICAID ==
[~2021-12-11] VITALS: Ht 170.2 cm; Wt 90.7 kg
[~2021-12-11 10:17] MED LIST: LORazepam 2MG/ML-1ML VIAL ONE
[2021-12-11 11:50] LABS: Basophils # (auto) 0 10 ^3/uL (0-0.2); Basophils % (auto) 0.5 % (0.0-2.0); Eosinophils # (auto) 0.1 10 ^3/uL (0-0.8); Eosinophils % (auto) 0.6 % (0.0-7.0); Hematocrit 30.5 % (36.0-46.0); Hemoglobin 10.3 g/dL (12.2-16.2); Lymphocytes # (auto) 1.3 10 ^3/uL (0.4-5.4); Lymphocytes % (auto) 15.8 % (10.0-50.0); Mean Corpuscular Hemoglobin 29.6 pg (28.0-32.0); Mean Corpuscular Hgb Conc. 33.8 g/dL (32.0-36.0); Mean Corpuscular Volume 87.6 fL (80.0-100.0); Monocytes # (auto) 0.2 10 ^3/uL (0-1.3); Monocytes % (auto) 2.7 % (0.0-12.0); Neutrophils # (auto) 6.5 10 ^3/uL (1.6-8.6); Neutrophils % (auto) 80.4 % (37.0-80.0); Nucleated Red Blood Cells % 0.1 %; Red Blood Cells 3.48 10^6/uL (4.0-5.20); White Blood Cell 8.1 10^3/uL (4.4-10.8)
[2021-12-11 12:00] LABS: Albumin 3.1 g/dL (3.4-5.0); Calcium 9.2 mg/dL (8.5-10.1); Potassium 3.5 mmol/L (3.5-5.1)
[2021-12-11 12:06] LABS: BUN/Creatinine Ratio 6.3; Bilirubin, Total 0.2 mg/dL (0.2-1.0)
[2021-12-11 12:44] LABS: Urine Bacteria NONE SEEN /hpf (None Seen); Urine Blood Negative /uL (Negative); Urine Mucus FEW (None Seen); Urine Specific Gravity 1.006 (1.001-1.035); Urine WBC <1 /hpf (0 - 5)
[2021-12-11 13:03] LABS: Alcohol, Urine < 3.0 mg/dL (0-10); Amphetamine Screen, Urine NEGATIVE (NEGATIVE); Barbiturate Scree,Urine NEGATIVE (NEGATIVE); Benzodiazephine Screen, Urine NEGATIVE (NEGATIVE); Cocaine Screen, Urine NEGATIVE (NEGATIVE); Opiate Scree,Urine NEGATIVE (NEGATIVE); Phencyclidine Screen, Urine NEGATIVE (NEGATIVE)
[2021-12-11 13:11] LABS: Cannabinoid Screen, Urine POSITIVE (NEGATIVE)
[2021-12-11] MEDS ORDERED: KETAMINE HCL 10 ML ONE (15:36)
[2021-12-11 17:25] VITALS: BP 110/64
== END 2021-12-11 17:30 | disposition home or self-care (01) ==
LOC: ER 10:17
DX: O99.353 Diseases of the nervous system complicating pregnancy, third trimester (principal); G40.909 Epilepsy, unspecified, not intractable, without status epilepticus; Z3A.29 29 weeks gestation of pregnancy; Z20.822 Contact with and (suspected) exposure to COVID-19; Z90.49 Acquired absence of other specified parts of digestive tract
CPT/HCPCS: 36415; 80053; 80307; 81001; 83605; 84443; 84484; 85025; 87426; 93005; 96365; 99285; J1953; J2060; J7060

== ENCOUNTER 2021-12-16 07:05 | Inpatient (IN) | payer MEDICAID ==
[~2021-12-16] VITALS: Ht 175.3 cm; Wt 90.7 kg
[2021-12-16] MEDS ORDERED: LORazepam 2MG/ML-1ML VIAL IV PRN ×3 (07:45→09:30)
[2021-12-16] MEDS ORDERED: LORazepam 2MG/ML-1ML VIAL ONE ×2 (07:52→07:54)
[2021-12-16] MEDS ORDERED: LACTATED RINGER'S 1,000 ML IV ONE (08:33)
[2021-12-16 12:00] LABS: Basophils # (auto) 0.1 10 ^3/uL (0-0.2); Basophils % (auto) 0.9 % (0.0-2.0); Eosinophils # (auto) 0.1 10 ^3/uL (0-0.8); Eosinophils % (auto) 0.8 % (0.0-7.0); Hemoglobin 9.4 g/dL (12.2-16.2); Lymphocytes # (auto) 1.5 10 ^3/uL (0.4-5.4); Lymphocytes % (auto) 18.6 % (10.0-50.0); Mean Corpuscular Hemoglobin 30.3 pg (28.0-32.0); Mean Corpuscular Hgb Conc. 34.8 g/dL (32.0-36.0); Mean Corpuscular Volume 87.2 fL (80.0-100.0); Monocytes # (auto) 0.3 10 ^3/uL (0-1.3); Monocytes % (auto) 4.3 % (0.0-12.0); Neutrophils # (auto) 5.9 10 ^3/uL (1.6-8.6); Neutrophils % (auto) 75.4 % (37.0-80.0); Red Cell Distribution Width 14.9 % (11.8-14.3); White Blood Cell 7.8 10^3/uL (4.4-10.8)
[2021-12-16] MEDS ORDERED: LACTATED RINGER'S 1,000 ML IV SCH (12:15)
[2021-12-16 12:35] LABS: Albumin 2.6 g/dL (3.4-5.0); BUN/Creatinine Ratio 5.1
[2021-12-16 12:42] LABS: Urine Bacteria NONE SEEN /hpf (None Seen); Urine Blood Negative /uL (Negative); Urine Specific Gravity 1.009 (1.001-1.035); Urine WBC 1 /hpf (0 - 5)
[2021-12-16 12:45] LABS: Bilirubin, Total 0.2 mg/dL (0.2-1.0); Total Protein 6.2 g/dL (6.4-8.2)
== END 2021-12-16 13:48 | disposition short-term general hospital (02) | DRG 566 ==
LOC: LDRP 07:05 → OBSVTOIN 11:30 → LDRP 13:43
PROVIDERS: ADMIT Obstetrics & Gynecology Obstetrics; ATTEND Obstetrics & Gynecology Obstetrics
DX: O99.353 Diseases of the nervous system complicating pregnancy, third trimester (principal); R56.9 Unspecified convulsions; Z20.822 Contact with and (suspected) exposure to COVID-19; Z3A.30 30 weeks gestation of pregnancy; Z88.8 Allergy status to other drugs, medicaments and biological substances
CPT/HCPCS: 36415; 59025; 76815; 80053; 81001; 81002; 82948; 82962; 85025; 87426; 94760; 96360; 96361; 96374; 96375; G0378; J7060

== ENCOUNTER 2022-01-02 07:37 | Observation (INO) | payer MEDICAID ==
[~2022-01-02] VITALS: Ht 172.7 cm; Wt 81.6 kg
[2022-01-02] MEDS ORDERED: ACE650RS PO (08:45)
[2022-01-02] MEDS ORDERED: TERBUTALINE SULFATE 1 MG/ML 1ML VIAL SC ONE (08:45)
[2022-01-02] MEDS ORDERED: LEVE100012 PO (08:46)
== END 2022-01-02 18:37 | disposition home or self-care (01) ==
LOC: LDRP 07:37
PROVIDERS: ADMIT Obstetrics & Gynecology; ATTEND Obstetrics & Gynecology
DX: O99.891 Other specified diseases and conditions complicating pregnancy (principal); M54.9 Dorsalgia, unspecified; R10.30 Lower abdominal pain, unspecified; O21.2 Late vomiting of pregnancy; Z3A.32 32 weeks gestation of pregnancy; Z79.899 Other long term (current) drug therapy
CPT/HCPCS: 59025; 81002; 82962; 96372; G0378; J3105

== ENCOUNTER 2022-01-17 03:08 | Observation (INO) | payer MEDICAID ==
[~2022-01-17] VITALS: Ht 172.7 cm; Wt 81.6 kg
[~2022-01-17 03:08] MED LIST changes: +ACE650RS PO; +LEVE100012 PO; -LORazepam 2MG/ML-1ML VIAL ONE
[2022-01-17] MEDS ORDERED: LORazepam 2MG/ML-1ML VIAL ONE (03:43)
[2022-01-17] MEDS: LORazepam 2MG/ML-1ML VIAL IV PRN ×3 (03:45→05:00)
[2022-01-17] MEDS ORDERED: MAGNESIUM SULFATE 100 ML IV ONE ×2 (03:53→04:15)
[2022-01-17] MEDS ORDERED: levETIRAcetam 500 MG/5ML INJ IV ONE (03:55)
[2022-01-17 04:11] LABS: Basophils # (auto) 0.1 10 ^3/uL (0-0.2); Basophils % (auto) 0.6 % (0.0-2.0); Eosinophils # (auto) 0.1 10 ^3/uL (0-0.8); Eosinophils % (auto) 0.5 % (0.0-7.0); Hematocrit 28.1 % (36.0-46.0); Hemoglobin 9.5 g/dL (12.2-16.2); Lymphocytes # (auto) 0.8 10 ^3/uL (0.4-5.4); Mean Corpuscular Hemoglobin 28.8 pg (28.0-32.0); Mean Corpuscular Hgb Conc. 33.9 g/dL (32.0-36.0); Mean Corpuscular Volume 85.1 fL (80.0-100.0); Monocytes # (auto) 0.5 10 ^3/uL (0-1.3); Monocytes % (auto) 4.4 % (0.0-12.0); Neutrophils # (auto) 9.6 10 ^3/uL (1.6-8.6); Neutrophils % (auto) 87.5 % (37.0-80.0); Red Cell Distribution Width 14.6 % (11.8-14.3); White Blood Cell 10.9 10^3/uL (4.4-10.8)
[2022-01-17 04:20] LABS: INR 0.89 (0.9-1.15)
[2022-01-17 04:26] LABS: Alanine Aminotransferase 13 U/L (13-56); Albumin 2.5 g/dL (3.4-5.0); Anion Gap 8 (5-15); Aspartate Aminotransferase 12 U/L (15-37); BUN/Creatinine Ratio 9.4; Blood Urea Nitrogen 6 mg/dL (7-18); Calcium 8.4 mg/dL (8.5-10.1); Carbon Dioxide 22 mmol/L (21-32); Chloride 110 mmol/L (98-107); GFR African American 143 mL/min; GFR Non-African American 118 mL/min; Glucose 93 mg/dL (74-106); Potassium 3.6 mmol/L (3.5-5.1); Sodium 140 mmol/L (136-145)
[2022-01-17 04:28] LABS: Alkaline Phosphatase 73 U/L (45-117); Amylase 112 U/L (25-115); Bilirubin, Total 0.2 mg/dL (0.2-1.0); Lipase 64 U/L (73-393); Total Protein 6.5 g/dL (6.4-8.2)
[2022-01-17] MEDS ORDERED: PANTOPRAZOLE 40 MG/10 ML VIAL INJ IV SCH (04:30)
[2022-01-17 04:32] LABS: Uric Acid 3.1 mg/dL (2.6-6.0)
[2022-01-17 04:44] LABS: Partial Thromboplastin Time 27.6 sec (23.6-33.0)
[2022-01-17] MEDS ORDERED: LACTATED RINGER'S 1,000 ML IV SCH (04:45)
[2022-01-17] MEDS ORDERED: MAGNESIUM SULFATE 40MG/ML 1,000 ML IV SCH ×2 (04:45)
[2022-01-17 06:59] LABS: Urine Bacteria NONE SEEN /hpf (None Seen); Urine Blood Negative /uL (Negative); Urine WBC <1 /hpf (0 - 5)
[2022-01-17 07:28] LABS: Protein, Urine 24.5 mg/dL (0.0-11.9)
== END 2022-01-17 05:40 | disposition still patient (30) ==
LOC: LDRP 03:08
PROVIDERS: ADMIT Obstetrics & Gynecology; ATTEND Obstetrics & Gynecology
DX: O26.893 Other specified pregnancy related conditions, third trimester (principal); K29.70 Gastritis, unspecified, without bleeding; R10.9 Unspecified abdominal pain; G40.409 Other generalized epilepsy and epileptic syndromes, not intractable, without status epilepticus; O99.350 Diseases of the nervous system complicating pregnancy, unspecified trimester; O10.913 Unspecified pre-existing hypertension complicating pregnancy, third trimester; Z3A.34 34 weeks gestation of pregnancy; Z86.32 Personal history of gestational diabetes
CPT/HCPCS: 36415; 59025; 76815; 76818; 80053; 81001; 82150; 82570; 83690; 84156; 84550; 85025; 85379; 85610; 85730; 86850; 86900; 86901; 94760; 96365; 96375; 96376; G0378; J1953; J2060; J3475; J7060; 96360; 96361; 96366; 96374

== ENCOUNTER 2022-01-17 05:55 | Observation (INO) | payer MEDICAID ==
[~2022-01-17] VITALS: Ht 177.8 cm; Wt 95.3 kg
[2022-01-17 10:00] VITALS: BP 129/78
[2022-01-17] MEDS ORDERED: TERBUTALINE SULFATE 1 MG/ML 1ML VIAL SC ONE (13:45)
[2022-01-17] MEDS ORDERED: LACTATED RINGER'S 1,000 ML IV ONE (13:45)
[2022-01-17] MEDS ORDERED: ONDANSETRON HCL 4 MG/2 ML VIAL IV ONE (13:45)
[2022-01-17] MEDS ORDERED: ALUM & MAG HYDROX-SIMETH LIQ(MAALOX) 30 ML PO ONE (13:45)
[2022-01-17] MEDS ORDERED: FAMOTIDINE (10MG/ML) 2ML VL IV ONE (13:45)
== END 2022-01-17 16:19 | disposition home or self-care (01) ==
LOC: ER 05:55 → LDRP 13:05
PROVIDERS: ADMIT Obstetrics & Gynecology; ATTEND Obstetrics & Gynecology
DX: O99.353 Diseases of the nervous system complicating pregnancy, third trimester (principal); G40.909 Epilepsy, unspecified, not intractable, without status epilepticus; O21.2 Late vomiting of pregnancy; O99.613 Diseases of the digestive system complicating pregnancy, third trimester; K52.9 Noninfective gastroenteritis and colitis, unspecified; O16.3 Unspecified maternal hypertension, third trimester; O99.113 Other diseases of the blood and blood-forming organs and certain disorders involving the immune mechanism complicating pregnancy, third trimester; O21.8 Other vomiting complicating pregnancy; Z3A.34 34 weeks gestation of pregnancy
CPT/HCPCS: 59025; 81002; 94760; 96361; 96374; 96375; 99284; G0378; J2405; J3490; 96360

== ENCOUNTER 2022-01-19 08:12 | Observation (INO) | payer MEDICAID ==
[~2022-01-19] VITALS: Ht 172.7 cm; Wt 90.7 kg
[2022-01-19] MEDS ORDERED: LORazepam 2MG/ML-1ML VIAL IV PRN (08:30)
[2022-01-19] MEDS ORDERED: PREN-96 PO (08:51)
[2022-01-19] MEDS ORDERED: LABETALOL HCL 200 MG TAB PO SCH (10:00)
== END 2022-01-19 12:07 | disposition home or self-care (01) ==
LOC: LDRP 08:12
PROVIDERS: ADMIT Obstetrics & Gynecology; ATTEND Obstetrics & Gynecology
DX: O21.2 Late vomiting of pregnancy (principal); O62.9 Abnormality of forces of labor, unspecified; O26.893 Other specified pregnancy related conditions, third trimester; R10.9 Unspecified abdominal pain; Z3A.35 35 weeks gestation of pregnancy; Z79.899 Other long term (current) drug therapy
CPT/HCPCS: 59025; 76805; 81002; 82962; 94760; 96365; G0378; J1953; J7060

== ENCOUNTER 2022-07-08 10:16 | Emergency (ER) | payer MEDICAID ==
[~2022-07-08] VITALS: Ht 172.7 cm; Wt 90.9 kg
[~2022-07-08 10:16] MED LIST changes: +PREN-96 PO
[2022-07-08 10:35] VITALS: BP 187/65
[2022-07-08 11:47] LABS: Potassium 3.6 mmol/L (3.5-5.1)
[2022-07-08 11:55] LABS: Albumin 3.6 g/dL (3.4-5.0); BUN/Creatinine Ratio 11.1; Bilirubin, Total 0.6 mg/dL (0.2-1.0); Total Protein 7.8 g/dL (6.4-8.2)
[2022-07-08 12:12] LABS: Basophils # (auto) 0.1 10 ^3/uL (0-0.2); Basophils % (auto) 1.5 % (0.0-2.0); Eosinophils # (auto) 0.2 10 ^3/uL (0-0.8); Eosinophils % (auto) 1.8 % (0.0-7.0); Hematocrit 32.2 % (36.0-46.0); Hemoglobin 10.3 g/dL (12.2-16.2); Lymphocytes # (auto) 1.1 10 ^3/uL (0.4-5.4); Mean Corpuscular Volume 68.8 fL (80.0-100.0); Monocytes # (auto) 0.5 10 ^3/uL (0-1.3); Monocytes % (auto) 5.7 % (0.0-12.0); Neutrophils # (auto) 6.8 10 ^3/uL (1.6-8.6); Nucleated Red Blood Cells % 0.1 %; Red Blood Cells 4.68 10^6/uL (4.0-5.20); White Blood Cell 8.7 10^3/uL (4.4-10.8)
[2022-07-08 12:13] LABS: Red Cell Distribution Width 23.3 % (11.8-14.3)
[2022-07-08] MEDS ORDERED: LEVE500T32 PO (12:14)
[2022-07-08] MEDS ORDERED: SODIUM CHLORIDE 0.9% 1,000 ML IV ONE (12:15)
== END 2022-07-08 15:39 | disposition home or self-care (01) ==
LOC: ER 10:16
DX: R56.9 Unspecified convulsions (principal); E11.9 Type 2 diabetes mellitus without complications; I10 Essential (primary) hypertension; F12.10 Cannabis abuse, uncomplicated; Z90.49 Acquired absence of other specified parts of digestive tract; Z90.89 Acquired absence of other organs; Z88.8 Allergy status to other drugs, medicaments and biological substances
CPT/HCPCS: 36415; 70450; 80053; 85025; 99284; J1953; J7060

== ENCOUNTER 2023-01-06 00:42 | Emergency (ER) | payer MEDICAID ==
[~2023-01-06] VITALS: Ht 172.7 cm; Wt 90.9 kg
[~2023-01-06 00:42] MED LIST changes: +LEVE500T32 PO
[2023-01-06 01:59] LABS: Urine Bacteria NONE SEEN /hpf (None Seen); Urine Blood Negative /uL (Negative); Urine Mucus FEW (None Seen); Urine WBC 4 /hpf (0 - 5)
[2023-01-06 02:20] LABS: Basophils # (auto) 0.1 10 ^3/uL (0-0.2); Eosinophils # (auto) 0 10 ^3/uL (0-0.8); Hemoglobin 12.2 g/dL (12.2-16.2); Lymphocytes # (auto) 1.1 10 ^3/uL (0.4-5.4); Monocytes # (auto) 0.5 10 ^3/uL (0-1.3); Neutrophils # (auto) 5.7 10 ^3/uL (1.6-8.6)
[2023-01-06 02:22] LABS: Basophils % (auto) 1.5 % (0.0-2.0); Eosinophils % (auto) 0.6 % (0.0-7.0); Hematocrit 36.6 % (36.0-46.0); Lymphocytes % (auto) 14.7 % (10.0-50.0); Mean Corpuscular Hemoglobin 26.8 pg (28.0-32.0); Mean Corpuscular Hgb Conc. 33.4 g/dL (32.0-36.0); Mean Corpuscular Volume 80.3 fL (80.0-100.0); Neutrophils % (auto) 76.2 % (37.0-80.0); Nucleated Red Blood Cells % 0.1 %; Red Blood Cells 4.55 10^6/uL (4.0-5.20); Red Cell Distribution Width 19.2 % (11.8-14.3); White Blood Cell 7.5 10^3/uL (4.4-10.8)
[2023-01-06] MEDS ORDERED: MORPHINE SULFATE 4 MG/ML SYR/VIAL IM ONE (02:30)
[2023-01-06 02:33] LABS: Albumin 4.1 g/dL (3.4-5.0); BUN/Creatinine Ratio 12.9 (10.0-20.0); Calcium 9.5 mg/dL (8.5-10.1); Potassium 3.8 mmol/L (3.5-5.1)
[2023-01-06 02:35] LABS: Bilirubin, Total 0.4 mg/dL (0.2-1.0); Total Protein 8.4 g/dL (6.4-8.2)
[2023-01-06 03:38] VITALS: BP 158/89
== END 2023-01-06 04:45 | disposition home or self-care (01) ==
LOC: ER 00:42
DX: R10.33 Periumbilical pain (principal); R11.2 Nausea with vomiting, unspecified; I10 Essential (primary) hypertension; E11.9 Type 2 diabetes mellitus without complications; Z90.49 Acquired absence of other specified parts of digestive tract; Z90.89 Acquired absence of other organs; Z79.899 Other long term (current) drug therapy; Z88.8 Allergy status to other drugs, medicaments and biological substances
CPT/HCPCS: 36415; 80053; 81001; 81025; 83690; 85025; 96372; 99283; J2270

== ENCOUNTER 2025-05-07 06:14 | Inpatient (IN) | payer MEDICAID ==
[~2025-05-07] VITALS: Ht 175.3 cm; Wt 133.9 kg
[~2025-05-07 06:14] MED LIST changes: -LEVE500T32 PO; +LEVE500T40 PO
--- NOTE | 2025-05-07 06:46 | ED.PDOC ---
GI ASSESSMENT HPI Comments 29 year old female presents to the ED with a chief complaint of abdominal pain onset today () around 03:30. Patient states she was sleeping, woke up due to sharp lower abdominal pain, radiating to low back. Patient is also experiencing nausea, vomiting. Last bowel movement was yesterday. She currently rates her pain 10/10. Denies fevers, chills, hematemesis, dizziness, chest pain. No other symptoms or modifying factors present at this time. Chief Complaint: Abdominal Pain Time Seen by MD: 06:35 Primary Care Provider: SUSSY Reviewed Notes: Medications, Allergies Allergies: Coded Allergies: Haloperidol (Verified Allergy, Unknown, 01/02/22) Ketorolac Tromethamine (Verified Allergy, Unknown, 01/02/22) Home Meds Active Scripts Levetiracetam (Keppra) 500 Mg Tab, 500 MG PO DAILY for 7 Days, #7 MG Prov:JOYCE GROVER MD 07/08/22 Reported Medications Vit W/ Ferrous Fumara ( One Daily) Daily Tab, 1 TAB PO DAILY, #90 TAB 3 Refills 01/19/22 Levetiracetam (Keppra) 1,000 Mg Tab, 1 TAB PO BID, #60 TAB 5 Refills 01/02/22 Acetaminophen (Tylenol) 650 Mg Rc, 500 MG PO PRN for PAIN SCALE 1 THRU 6, SUPP.RECT 01/02/22 Information Source: Patient Mode of Arrival: Ambulatory Timing: Hours Duration: Since onset Prehospital treatment: None Quality: Sharp Severity: Moderate ( ) Recent: None Pain Location: Suprapubic Modifying Factors: Nothing Associated sign and symptoms: Nausea, Vomiting, Abdominal Pain Past Medical History PAST MEDICAL HISTORY: DM, HTN, Seizures Surgical History: Appendectomy, Cholecystectomy, , Tonsillectomy [employer] SERVICE REPRESENTATIVE History: 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 History Family History Family History: Reviewed,noncontributory to illness Social History Smoker: Non-Smoker Alcohol: Denies ETOH Use Drugs: Marijuana Lives In: Home Constitutional: denies: chills, diaphoresis, fatigue, fever, malaise, sweats, weakness, others EENTM: denies: blurred vision, double vision, ear bleeding, ear discharge, ear drainage, ear pain, ear ringing, eye pain, eye redness, hearing loss, mouth pain, mouth swelling, nasal discharge, nose bleeding, nose congestion, nose pain, photophobia, tearing, throat pain, throat swelling, voice changes, others Respiratory: denies: cough, hemoptysis, orthopnea, SOB at rest, shortness of breath, SOB with excertion, stridor, wheezing, others Cardiovascular: denies: chest pain, dizzy spells, diaphoresis, Dyspnea on exertion, edema, irregular heart beat, left arm pain, lightheadedness, palpitations, PND, syncope, others Gastrointestinal: reports: abdominal pain, nausea, vomiting; denies: abdomen distended, blood streaked bowels, constipated, diarrhea, dysphagia, difficulty swallowing, hematemesis, melena, poor appetite, poor fluid intake, rectal bleeding, rectal pain, others Genitourinary: denies: abnormal vagina bleeding, burning, dyspareunia, dysuria, flank pain, frequency, hematuria, incontinence, pain, , vagina discharge, urgency, others Neurological: denies: dizziness, fainting, headache, left sided numbness, left sided weakness, numbness, paresthesia, pre-existing deficit, right sided numbness, right sided weakness, seizure, speech problems, tingling, tremors, weakness, others Musculoskeletal: reports: back pain; denies: gout, joint pain, joint swelling, muscle pain, muscle stiffness, neck pain, others Integumetry: denies: bruises, change in color, change in hair/nails, dryness, laceration, lesions, lumps, rash, wounds, others Allergic/Immunocompromised: denies: Difficulty Healing, Frequent Infections, Hives, Itching, others Hematologic/Lymphatic: denies: anemia, blood clots, easy bleeding, easy bruising, swollen glands, others Endocrine: denies: excessive hunger, excessive sweating, excessive thirst, excessive urination, flushing, intolerance to cold, intolerance to heat, unexplained weight gain, unexplained weight loss, others Psychiatric: denies: anxiety, bipolar disorder, depression, hopeless, panic disorder, schizophrenia, sleepless, suicidal, others All Other Systems: Reviewed and Negative Physical Exam General Appearance: Moderate Distress HEENT: Normal ENT Inspection, Pharynx Normal, TMs Normal Neck: Full Range of Motion, Non-Tender, Normal, Normal Inspection Respiratory: Chest Non-Tender, Lungs Clear, No Accessory Muscle Use, No Respiratory Distress, Normal Breath Sounds Cardiovascular: No Edema, No JVD, No Murmur, No Gallop, Normal Peripheral Pulses, Regular Rate/Rhythm Breast Exam: Deferred Gastrointestinal: No Organomegaly, Non Tender, No Pulsatile Mass, Normal Bowel Sounds, Soft Genitalia: Deferred Pelvic: Deferred Rectal: Deferred Extremities: No calf tenderness, Normal capillary refill, Normal inspection, Normal range of motion, Non-tender, No pedal edema Musculoskeletal : Apperance: Normal Neurologic: Alert, tail dogger II-XII nml as Tested, No Motor Deficits, Normal Affect, Normal Mood, No Sensory Deficits Cerebellar Function: Normal Reflexes: Normal Skin: Dry, Normal Color, Warm Peripheral Pulses: 3+ Radial (R), 3+ Radial (L) Lymphatic: No Adenopathy Was a procedure done? Was a procedure done?: No GI differential Dx Differential Diagnosis: Constipation, Diverticular disease, Esophagitis, Gastritis/PUD, Gastroenteritis X-Ray, Labs, Meds, VS Vital Signs Date Time Temp Pulse Resp B/P (MAP) Pulse Ox O2 Delivery O2 Flow Rate FiO2 05/07/25 07:31 97.8 87 20 127/73 (91) 100 97.8 05/07/25 07:31 87 20 100 Room Air* 0 21 05/07/25 06:29 98.3 110 24 140/118 (125) 98 98.3 Lab Test 05/07/25 06:43 Range/Units White Blood Count 11.5 H 4.4-10.8 10^3/uL Red Blood Count 4.75 4.0-5.20 10^6/uL Hemoglobin 13.5 12.2-16.2 g/dL Hematocrit 40.5 36.0-46.0 % Mean Corpuscular Volume 85.2 80.0-100.0 fL Mean Corpuscular Hemoglobin 28.3 28.0-32.0 pg Mean Corpuscular Hemoglobin Concent 33.2 32.0-36.0 g/dL Red Cell Distribution Width 16.5 H 11.8-14.3 % Platelet Count 164 140-450 10^3/uL Mean Platelet Volume 11.2 H 6.9-10.8 fL Neutrophils (%) (Auto) 74.6 37.0-80.0 % Lymphocytes (%) (Auto) 19.4 10.0-50.0 % Monocytes (%) (Auto) 3.1 0.0-12.0 % Eosinophils (%) (Auto) 2.3 0.0-7.0 % Basophils (%) (Auto) 0.6 0.0-2.0 % Neutrophils # (Auto) 8.6 1.6-8.6 10 ^3/uL Lymphocytes # (Auto) 2.2 0.4-5.4 10 ^3/uL Monocytes # (Auto) 0.4 0-1.3 10 ^3/uL Eosinophils # (Auto) 0.3 0-0.8 10 ^3/uL Basophils # (Auto) 0.1 0-0.2 10 ^3/uL Nucleated Red Blood Cells 0.2 % Sodium Level 137 136-145 mmol/L Potassium Level 3.6 3.5-5.1 mmol/L Chloride Level 106 98-107 mmol/L Carbon Dioxide Level 21 20-31 mmol/L Anion Gap 10 5-15 Blood Urea Nitrogen 8 L 9-23 mg/dL Creatinine 1.05 H 0.550-1.02 mg/dL Glomerular Filtration Rate Calc 73 >90 mL/min BUN/Creatinine Ratio 7.6 L 10.0-20.0 Serum Glucose 171 H 74-106 mg/dL Calcium Level 10.9 H 8.7-10.4 mg/dL Current Medications Medications (Trade) Dose Ordered Sig/Abelardo Route Start Time Stop Time Status Last Admin Ketorolac Tromethamine (Toradol Injection) 60 mg ONCE ONCE IM 05/07/25 06:45 05/07/25 06:46 DC 05/07/25 07:44 Patient alert. Complaining of abdominal pain. Saturation pristine on room air. Vitals stable. Answering questions. Was given pain medication. Continue to monitor. Time of 1ST Reevaluation: 07:05 Reevaluation 1ST: Unchanged Patient Education/Counseling: Diagnosis, Treatment, Prognosis Family Education/Counseling: No Family Present SEPSIS Sepsis Screen Date sepsis recognized/suspect: May 07, 2025 Time Sepsis recognized/suspect: 621 Recent Procedure: No On Antibiotic Therapy: No Respiratory Rate >20: No Heart Rate >90: No Temp<36 C (96.8 F) or >38.3 C: No SBP <90 or MAP <65 mmHG: No New Acute Mental Status Change: No Is the patient on CPAP, BIPAP,: No Physician Orders Urinalysis (05/07/25 06:33) Vital Signs Date Time Temp Pulse Resp B/P (MAP) Pulse Ox O2 Delivery O2 Flow Rate FiO2 05/07/25 07:31 97.8 87 20 127/73 (91) 100 97.8 05/07/25 07:31 87 20 100 Room Air* 0 21 05/07/25 06:29 98.3 110 24 140/118 (125) 98 98.3 Laboratory Tests Test 05/07/25 06:43 White Blood Count 11.5 10^3/uL (4.4-10.8) H Medications Medications Dose Ordered Sig/Abelardo Route Start Time Stop Time Status Last Admin Dose Admin Ketorolac Tromethamine 60 mg ONCE ONCE IM 05/07/25 06:45 05/07/25 06:46 DC 05/07/25 07:44 Departure 1 Departure Time of Disposition: 07:26 Impression: Primary Impression: Acute abdominal pain Additional Impression: Non-specific colitis Disposition: ADMITTED INPATIENT Admit to: Med Surg Condition: Guarded Critical Care Note Critical Care Time?: No Stability Stability form required: No Heart Score Heart Score: Heart Score Response (Comments) Value History N/A 0 EKG N/A 0 Age N/A 0 Risk Factors N/A 0 Troponin N/A 0 Total 0 I personally scribed for JOYCE GROVER MD ([email or web address]) on 05/07/25 at 06:45. Electronically submitted by Kyung Rogers ([email or web address]). JOYCE GROVER MD May 07, 2025 06:45
[2025-05-07 07:27] LABS: Hematocrit 40.5 % (36.0-46.0); Hemoglobin 13.5 g/dL (12.2-16.2); Mean Corpuscular Hemoglobin 28.3 pg (28.0-32.0); Mean Corpuscular Volume 85.2 fL (80.0-100.0); Nucleated Red Blood Cells % 0.2 %
[2025-05-07 07:31] VITALS: PULSE 87; RESP 20; O2SAT 100
[2025-05-07 07:33] LABS: Chloride 106 mmol/L (98-107); Potassium 3.6 mmol/L (3.5-5.1); Sodium 137 mmol/L (136-145)
[2025-05-07 07:34] LABS: Anion Gap 10 (5-15); Carbon Dioxide 21 mmol/L (20-31)
[2025-05-07 07:39] LABS: BUN/Creatinine Ratio 7.6 (10.0-20.0)
[2025-05-07 07:44] LABS: Blood Urea Nitrogen 8 mg/dL (9-23); Calcium 10.9 mg/dL (8.7-10.4); Glucose 171 mg/dL (74-106)
[2025-05-07] MEDS: KETOROLAC TROMETH 60MG/2ML VIAL IM ONE (07:44)
[2025-05-07] MEDS ORDERED: SODIUM CHLORIDE 0.9% 1,000 ML IV ONE (08:15)
[2025-05-07 08:35] VITALS: PULSE 81; RESP 16; O2SAT 99
[2025-05-07 08:51] VITALS: BP 143/61; PULSE 81; RESP 14; TEMP 98.8; O2SAT 97
--- NOTE | 2025-05-07 08:57 | DVH ---
Exam: CT CT AB PEL WO CON-NO ORAL OR IV History: Colitis Comparison Study: None Technique: Multidetector spiral CT of the abdomen and pelvis was performed from lung bases to pubic s ymphysis. Imaging was performed without intravenous contrast. Coronal and sagittal multiplanar reform ats were obtained from the axial data set by the technologist. Radiation Dose : 1. Abdomen/Pelvis: CTDIvol 26.9 mGy, DLP 1469.2 mGy*cm. Findings: Evaluation of vasculature and solid organs is limited due to lack of intravenous contrast use. Lung Bases: Lung bases are clear. Visualized portions of the heart and pericardium are unremarkable. Liver: The liver is normal in size. No focal lesions. Gallbladder and Biliary Tree: The gallbladder is surgically absent. No intrahepatic or extrahepatic b iliary ductal dilatation. Spleen: Unremarkable Pancreas: The pancreas is grossly unremarkable. Adrenal Glands: Unremarkable Kidneys: Kidneys are unremarkable without calculi or hydronephrosis. GI tract: Small hiatal hernia. No evidence of small bowel wall thickening or abnormal dilatation to s uggest bowel obstruction. Underdistended colon. Mild wall thickening and fat stranding of the spleni c flexure. Can not exclude wall thickening of the descending colon which appears underdistended. The appendix is visualized and is normal. Peritoneum/mesentery/retroperitoneum. No evidence of free intraperitoneal air. No ascites. No evidenc e of suspicious lymphadenopathy. Abdominal Wall: Unremarkable. Vasculature: The visualized abdominal aorta is normal in size and caliber. Evaluation of abdominal a nd pelvic vessels is limited due to lack of intravenous contrast. Urinary Bladder: Grossly unremarkable for degree of distention. Pelvic Organs: Unremarkable Musculoskeletal: No aggressive focal bony lesions, acute fractures or dislocation. IMPRESSION: 1. Mild wall thickening in the splenic flexure may suggest colitis. Underdistention versus colitis in volving the descending colon as well. 2. Cholecystectomy.
[2025-05-07] MEDS: LORazepam 2MG/ML-1ML VIAL IM ONE (09:05)
--- NOTE | 2025-05-07 10:03 | DVHHP2 ---
History of Present Illness Reason for Visit: Abdominal pain History of Present Illness 29-year-old female with a history of gestational diabetes, hypertension, seizure disorder, and obesity presents in the Emergency Department with sharp lower abdominal pain radiating to the back, associated with nausea and vomiting that started early this morning. Patient denies constipation, diarrhea, , fever, hematemesis, or melena. In the emergency department CT findings of mild wall thickening in the splenic flexure are suggestive of colitis. Mild leukocytosis. Past Medical History As stated in HPI Past Surgical History Cholecystectomy Family History Reviewed, non-contributory to the management of this case. Past Social History The patient lives at home, denies smoking, alcohol or illicit drugs abuse. Review of Systems Constitutional: Yes: Malaise; No: Fever, Chills, Sweats, Weakness, Other Eyes: No: Pain, Vision change, Conjunctivae inflammation, Eyelid inflammation, Other, Redness ENT: No: Ear pain, Ear discharge, Nose pain, Nose discharge, Nose congestion, Mouth pain, Mouth swelling, Throat pain, Throat swelling, Other Respiratory: No: Cough, Dry, Shortness of breath, SOB with excertion, Wheezing, Hemoptysis, Pleuritic Pain, Sputum, Wheezing, Other Cardiovascular: No: Chest Pain, Palpitations, Orthopnea, Paroxysmal Noc. Dyspnea, Edema, Lt Headedness, Other Gastrointestinal: Nausea, Vomiting, Abdominal Pain; No: Diarrhea, Constipation, Melena, Hematochezia Genitourinary: No Dysuria, No Frequency, No Incontinence, No Hematuria, No Retention, No Other Musculoskeletal: No: other, neck pain, shoulder pain, arm pain, back pain, hand pain, leg pain, foot pain Skin: No: Rash, Lesions, Jaundice, Bruising, Other Neurological: No: Weakness, Numbness, Incoordination, Change in speech, Confusion, Seizures, Other Allergies: Coded Allergies: Haloperidol (Verified Allergy, Unknown, 01/02/22) Ketorolac Tromethamine (Verified Allergy, Unknown, 01/02/22) Exam Vital Signs Vital Signs Date Time Temp Pulse Resp B/P (MAP) Pulse Ox O2 Delivery O2 Flow Rate FiO2 05/07/25 08:51 98.8 81 14 143/61 (88) 97 98.8 05/07/25 08:35 Room Air* 0 21 General Appearance: Alert, Oriented X3, Cooperative HEENT: Atraumatic, PERRLA Respiratory: Clear to auscultation, Normal air movement Cardiovascular: Regular rate, Normal S1, Normal S2 Abdominal: Normal bowel sounds, Other (Soft, tender in lower quadrants, no rebound or guarding.) Extremities: No clubbing, No cyanosis Skin: No rashes, No breakdown Neuro: Normal gait, Normal tone Psych/Mental Status: Mental status NL Labs/Xrays Labs Test 05/07/25 06:43 Range/Units White Blood Count 11.5 H 4.4-10.8 10^3/uL Red Blood Count 4.75 4.0-5.20 10^6/uL Hemoglobin 13.5 12.2-16.2 g/dL Hematocrit 40.5 36.0-46.0 % Mean Corpuscular Volume 85.2 80.0-100.0 fL Mean Corpuscular Hemoglobin 28.3 28.0-32.0 pg Mean Corpuscular Hemoglobin Concent 33.2 32.0-36.0 g/dL Red Cell Distribution Width 16.5 H 11.8-14.3 % Platelet Count 164 140-450 10^3/uL Mean Platelet Volume 11.2 H 6.9-10.8 fL Neutrophils (%) (Auto) 74.6 37.0-80.0 % Lymphocytes (%) (Auto) 19.4 10.0-50.0 % Monocytes (%) (Auto) 3.1 0.0-12.0 % Eosinophils (%) (Auto) 2.3 0.0-7.0 % Basophils (%) (Auto) 0.6 0.0-2.0 % Neutrophils # (Auto) 8.6 1.6-8.6 10 ^3/uL Lymphocytes # (Auto) 2.2 0.4-5.4 10 ^3/uL Monocytes # (Auto) 0.4 0-1.3 10 ^3/uL Eosinophils # (Auto) 0.3 0-0.8 10 ^3/uL Basophils # (Auto) 0.1 0-0.2 10 ^3/uL Nucleated Red Blood Cells 0.2 % Sodium Level 137 136-145 mmol/L Potassium Level 3.6 3.5-5.1 mmol/L Chloride Level 106 98-107 mmol/L Carbon Dioxide Level 21 20-31 mmol/L Anion Gap 10 5-15 Blood Urea Nitrogen 8 L 9-23 mg/dL Creatinine 1.05 H 0.550-1.02 mg/dL Glomerular Filtration Rate Calc 73 >90 mL/min BUN/Creatinine Ratio 7.6 L 10.0-20.0 Serum Glucose 171 H 74-106 mg/dL Calcium Level 10.9 H 8.7-10.4 mg/dL PROCEDURE(s): ABPL - CT AB PEL WO CON-NO ORAL OR IV REASON: colitis ORDER NUMBER(s): [id number], ACCESSION NUMBER(s): [id number] Exam: CT CT AB PEL WO CON-NO ORAL OR IV History: Colitis Comparison Study: None Technique: Multidetector spiral CT of the abdomen and pelvis was performed from lung bases to pubic symphysis. Imaging was performed without intravenous contrast. Coronal and sagittal multiplanar reformats were obtained from the axial data set by the technologist. Radiation Dose : 1. Abdomen/Pelvis: CTDIvol 26.9 mGy, DLP 1469.2 mGy*cm. Findings: Evaluation of vasculature and solid organs is limited due to lack of intravenous contrast use. Lung Bases: Lung bases are clear. Visualized portions of the heart and perica rdium are unremarkable. Liver: The liver is normal in size. No focal lesions. Gallbladder and Biliary Tree: The gallbladder is surgically absent. No intrahepatic or extrahepatic biliary ductal dilatation. Spleen: Unremarkable Pancreas: The pancreas is grossly unremarkable. Adrenal Glands: Unremarkable Kidneys: Kidneys are unremarkable without calculi or hydronephrosis. GI tract: Small hiatal hernia. No evidence of small bowel wall thickening or abnormal dilatation to suggest bowel obstruction. Underdistended colon. Mild wall thickening and fat stranding of the splenic flexure. Can not exclude wall thickening of the descending colon which appears underdistended. The appendix is visualized and is normal. Peritoneum/mesentery/retroperitoneum. No evidence of free intraperitoneal air. No ascites. No evidence of suspicious lymphadenopathy. Abdominal Wall: Unremarkable. Vasculature: The visualized abdominal aorta is normal in size and caliber. Evaluation of abdominal and pelvic vessels is limited due to lack of intravenous contrast. Urinary Bladder: Grossly unremarkable for degree of distention. Pelvic Organs: Unremarkable Musculoskeletal: No aggressive focal bony lesions, acute fractures or dislocation. IMPRESSION: 1. Mild wall thickening in the splenic flexure may suggest colitis. Underdistention versus colitis involving the descending colon as well. 2. Cholecystectomy. SEPSIS Sepsis Screen Date sepsis recognized/suspect: May 07, 2025 Time Sepsis recognized/suspect: 08 Recent Procedure: No On Antibiotic Therapy: No Respiratory Rate >20: No Heart Rate >90: No Temp<36 C (96.8 F) or >38.3 C: No SBP <90 or MAP <65 mmHG: No New Acute Mental Status Change: No Is the patient on CPAP, BIPAP,: No Physician Orders Urinalysis (05/07/25 06:33) Ct Ab Pel Wo Con-No Oral Or Iv (05/07/25 08:05) Vital Signs Date Time Temp Pulse Resp B/P (MAP) Pulse Ox O2 Delivery O2 Flow Rate FiO2 05/07/25 08:51 98.8 81 14 143/61 (88) 97 98.8 05/07/25 08:47 81 05/07/25 08:35 81 16 99 Room Air* 0 21 05/07/25 08:35 98.6 81 14 143/61 (88) 97 98.6 05/07/25 07:31 97.8 87 20 127/73 (91) 100 97.8 05/07/25 07:31 87 20 100 Room Air* 0 21 05/07/25 06:29 98.3 110 24 140/118 (125) 98 98.3 Laboratory Tests Test 05/07/25 06:43 White Blood Count 11.5 10^3/uL (4.4-10.8) H Medications Medications Dose Ordered Sig/Abelardo Route Start Time Stop Time Status Last Admin Dose Admin Ketorolac Tromethamine 60 mg ONCE ONCE IM 05/07/25 06:45 05/07/25 06:46 DC 05/07/25 07:44 60 MG Lorazepam 1 mg ONCE ONCE IM 05/07/25 09:00 05/07/25 09:01 DC 05/07/25 09:05 1 MG Assessment/Plan Assessment/Plan # acute abdominal pain likely colitis # nausea and vomiting * Admit to medical-surgical unit * Bowel rest--NPO except meds * IV fluid * Empiric antibiotic ceftriaxone and metronidazole * Blood, urine, stool culture * UA and test pending * Antiemetics * PPI # hx gestational diabetes # hypoglycemia * Insulin sliding scale * Check A1c # hx of seizures * Continue Keppra * Seizure precaution # hypertension * Hydralazine as needed * Monitor # marijuana use * Marijuana use cessation counseled * UDS # morbid obesity * Counseled on lifestyle modification with diet, regular exercise and weight loss Medical plan discussed with patient and RN Plan discussed with: Patient Date of Service: May 07, 2025 Billing Provider: SLADE JONES Common Visit Codes: [id number] INP/OBS CARE (HIGH) Consultation Codes: [id number] CONSULT <45MIN SLADE JONES May 07, 2025 10:03
[2025-05-07] MEDS ORDERED: DEXTROSE (50%) 50ML SYRG IV PRN (10:15)
[2025-05-07] MEDS ORDERED: PANTOPRAZOLE 40 MG/10 ML VIAL INJ IV ONE (10:15)
[2025-05-07] MEDS ORDERED: cefTRIAXone 1GM/50ML D5W 50 ML IV ONE (10:15)
[2025-05-07] MEDS ORDERED: SODIUM CHLORIDE 0.9% 1,000 ML IV SCH (10:15)
[2025-05-07 10:21] LABS: Urine Protein, UAD 1+ (Negative)
[2025-05-07 10:52] LABS: Amphetamine Screen, Urine Neg (NEGATIVE); Cannabinoid Screen, Urine Pos (NEGATIVE)
[2025-05-07 10:53] LABS: Barbiturate Scree,Urine Neg (NEGATIVE); Benzodiazephine Screen, Urine Neg (NEGATIVE); Cocaine Screen, Urine Neg (NEGATIVE); Opiate Scree,Urine Neg (NEGATIVE); Phencyclidine Screen, Urine Neg (NEGATIVE)
[2025-05-07 11:08] LABS: Alanine Aminotransferase 10 U/L (7-40)
[2025-05-07] MEDS ORDERED: ACCU-CHEK COMFORT CURVE STRIP VI SCH (12:00)
[2025-05-07] MEDS ORDERED: InsuLIN REG 1unit/0.01ml Soln (100units/ml) SC SCH (12:00)
[2025-05-07] MEDS ORDERED: PATIENTS OWN MEDICATION (Levetiracetam (Keppra) 1 TAB) PO SCH (22:00)
[2025-05-08] MEDS ORDERED: cefTRIAXone 1GM/50ML D5W 50 ML IV SCH (09:00)
[2025-05-08] MEDS ORDERED: PANTOPRAZOLE 40 MG/10 ML VIAL INJ IV SCH (10:00)
== END 2025-05-07 10:25 | disposition left against medical advice (07) | DRG 249 ==
LOC: ER 06:14 → EEVIPCON 06:14 → OVERFLOW 10:01
PROVIDERS: ADMIT Registered Nurse; ATTEND Registered Nurse
DX: A09 Infectious gastroenteritis and colitis, unspecified (principal); E11.649 Type 2 diabetes mellitus with hypoglycemia without coma; E66.01 Morbid (severe) obesity due to excess calories; I10 Essential (primary) hypertension; Z53.29 Procedure and treatment not carried out because of patient's decision for other reasons; G40.909 Epilepsy, unspecified, not intractable, without status epilepticus; F12.90 Cannabis use, unspecified, uncomplicated; Z88.8 Allergy status to other drugs, medicaments and biological substances; Z79.899 Other long term (current) drug therapy; Z90.49 Acquired absence of other specified parts of digestive tract; Z98.891 History of uterine scar from previous surgery; Z86.32 Personal history of gestational diabetes; Z68.41 Body mass index [BMI] 40.0-44.9, adult
CPT/HCPCS: 36415; 74176; 80048; 80307; 81001; 81025; 83036; 84450; 84460; 85025; 87040; 87086; 96372; G0378; J1885